=== PATIENT | male | born 1965 | race Caucasian/White ===

== ENCOUNTER 2022-10-18 16:44 | Emergency (ER) | payer MEDICAID ==
[~2022-10-18] VITALS: Ht 182.9 cm; Wt 113.6 kg
[~2022-10-18 16:44] MED LIST: COLC0.6T72 PO; CYCL-1 PO; DICL50TA8 PO
[2022-10-18 17:25] LABS: BASOPHILS # (AUTO) 0.1 X10'3 (0-0.2); BASOPHILS % (AUTO) 0.8 % (0-1); EOSINOPHILS # (AUTO) 0.3 X10'3 (0-0.9); EOSINOPHILS % (AUTO) 4.7 % (0-6); HEMATOCRIT 42.5 % (42.0-52.0); HEMOGLOBIN 14.8 g/dl (14.0-17.9); LYMPHOCYTES # (AUTO) 2.7 X10'3 (1.1-4.8); LYMPHOCYTES % (AUTO) 37.1 % (21-51); MEAN CORPUSCULAR HEMOGLOBIN 32.5 PG (27.0-31.0); MEAN CORPUSCULAR HGB CONC 34.9 g/dL (33.0-36.5); MEAN CORPUSCULAR VOLUME 93.2 FL (78-98); MEAN PLATELET VOLUME 8.9 FL (7.4-10.4); MONOCYTES # (AUTO) 0.6 X10'3 (0-0.9); MONOCYTES % (AUTO) 7.9 % (2-12); NEUTROPHILS # (AUTO) 3.5 X10'3 (1.8-7.7); NEUTROPHILS % (AUTO) 49.5 % (42-75); PLATELET COUNT 235 X10'3 (140-440); RED BLOOD COUNT 4.56 X10'6 (4.70-6.10); RED CELL DISTRIBUTION WIDTH 13.2 % (11.5-14.5); WHITE BLOOD COUNT 7.1 X10'3 (4.5-11.0)
[2022-10-18 17:28] LABS: ALANINE AMINOTRANSFERASE 64 U/L (12-78); ALBUMIN 4.1 G/DL (3.4-5.0); ALBUMIN/GLOBULIN RATIO 1.2 (1.1-1.5); ALKALINE PHOSPHATASE 54 IU/L (46-116); ANION GAP 13 (8-16); ASPARTATE AMINO TRANSFERASE 34 U/L (10-37); BILIRUBIN,TOTAL 0.4 MG/DL (0.1-1.0); BLOOD UREA NITROGEN 15 MG/DL (7-18); BUN/CREATININE RATIO 17.4 (5.4-32.0); CHLORIDE 103 MMOL/L (99-107); CREATININE 0.86 MG/DL (0.60-1.10); GLUCOSE 150 MG/DL (70-104); POTASSIUM 3.8 MMOL/L (3.5-5.1); SODIUM 138 MMOL/L (135-145); TOTAL CARBON DIOXIDE 22.2 MMOL/L (24-32); TOTAL PROTEIN 7.6 G/DL (6.4-8.2); eGFR > 90 ML/MIN
[2022-10-18 17:38] LABS: MAGNESIUM 1.8 MG/DL (1.5-2.4)
[2022-10-18 23:20] VITALS: BP 181/113
--- NOTE | 2022-10-19 00:33 | NUR ---
PT AGGITATED AND NONCOMPLIANT WITH ASSESSMENT AT THIS TIME. WHEN SPOKEN TO THE PT RAISES HIS VOICES AND YELLS ABOUT WAIT TIME. ATTEMPTED TO EXPLAIN TO PT WHY THERE IS A LONG WAIT TIME BUT PT IS UNWILLING TO LISTEN.
== END 2022-10-19 01:16 | disposition home or self-care (01) ==
LOC: ER 16:44
DX: I10 Essential (primary) hypertension (principal); E78.00 Pure hypercholesterolemia, unspecified; G89.29 Other chronic pain; F17.200 Nicotine dependence, unspecified, uncomplicated; Z98.890 Other specified postprocedural states; Z79.899 Other long term (current) drug therapy
CPT/HCPCS: 36415; 71045; 80053; 83735; 83880; 84484; 85025; 93005; 99285

== ENCOUNTER 2023-02-21 13:47 | Emergency (ER) | payer MEDICAID ==
[~2023-02-21] VITALS: Ht 188 cm; Wt 108.6 kg
[2023-02-21 14:18] VITALS: BP 128/93
== END 2023-02-21 15:29 | disposition home or self-care (01) ==
LOC: ER 13:47
DX: S90.112A Contusion of left great toe without damage to nail, initial encounter (principal); M79.675 Pain in left toe(s); I10 Essential (primary) hypertension; E78.00 Pure hypercholesterolemia, unspecified; X58.XXXA Exposure to other specified factors, initial encounter; Y93.89 Activity, other specified; Y92.89 Other specified places as the place of occurrence of the external cause; Y99.8 Other external cause status
CPT/HCPCS: 73630; 99283

== ENCOUNTER 2023-10-16 11:21 | Day surgery (SDC) | payer MEDICAID ==
[2023-10-16] VITALS (10 sets, daily range): BP systolic 100–136; BP diastolic 47–79; PULSE 47–63; RESP 12–16; TEMP 97.6; O2SAT 95–98
[~2023-10-16] VITALS: Ht 182.9 cm; Wt 106.6 kg
[2023-10-16] MEDS ORDERED: normal saline 1,000 ML IV SCH (11:40)
[2023-10-16] MEDS ORDERED: diphenhydrAMINE 25mg capsule PO PRN (11:40)
[2023-10-16] MEDS ORDERED: nitroGLYCERIN 0.4mg SUBLingual tab SL PRN (11:40)
[2023-10-16] MEDS ORDERED: LORazepam 0.5 MG tablet PO PRN (11:40)
[2023-10-16] MEDS ORDERED: ATOR40TA72 PO (12:10)
[2023-10-16] MEDS ORDERED: ASPI-1265 PO (12:10)
[2023-10-16] MEDS ORDERED: LISI40TA13 PO (12:10)
[2023-10-16 12:14] LABS: BASOPHILS # (AUTO) 0.1 X10'3 (0-0.2); BASOPHILS % (AUTO) 1.2 % (0-1); EOSINOPHILS # (AUTO) 0.4 X10'3 (0-0.9); HEMOGLOBIN 14.1 g/dl (14.0-17.9); LYMPHOCYTES # (AUTO) 1.9 X10'3 (1.1-4.8); LYMPHOCYTES % (AUTO) 34.4 % (21-51); MEAN CORPUSCULAR HEMOGLOBIN 32.3 PG (27.0-31.0); MEAN CORPUSCULAR HGB CONC 34.3 g/dL (33.0-36.5); MEAN CORPUSCULAR VOLUME 94.2 FL (78-98); MEAN PLATELET VOLUME 9.5 FL (7.4-10.4); MONOCYTES # (AUTO) 0.5 X10'3 (0-0.9); MONOCYTES % (AUTO) 8.3 % (2-12); NEUTROPHILS # (AUTO) 2.7 X10'3 (1.8-7.7); NEUTROPHILS % (AUTO) 49.1 % (42-75); PLATELET COUNT 238 X10'3 (140-440); RED BLOOD COUNT 4.35 X10'6 (4.70-6.10); RED CELL DISTRIBUTION WIDTH 13.1 % (11.5-14.5); WHITE BLOOD COUNT 5.6 X10'3 (4.5-11.0)
[2023-10-16 12:21] LABS: ALBUMIN 3.8 G/DL (3.4-5.0); ANION GAP 7 (8-16); BLOOD UREA NITROGEN 21 MG/DL (7-18); CHLORIDE 109 MMOL/L (99-107); CREATININE 0.75 MG/DL (0.60-1.10); GLUCOSE 110 MG/DL (70-104); POTASSIUM 4.1 MMOL/L (3.5-5.1); SODIUM 139 MMOL/L (135-145); TOTAL CARBON DIOXIDE 22.7 MMOL/L (24-32); eCRCL 118 ML/MIN; eGFR > 90 ML/MIN
[2023-10-16 12:24] LABS: APTT 22 SECONDS (22-32); INR 0.9 INR; PROTHROMBIN TIME 10.1 SECONDS (9.0-12.0)
[2023-10-16] MEDS ORDERED: fentaNYL/PF 50MCG/1 ML 2ML syringe ONE (13:02)
[2023-10-16] MEDS ORDERED: midazolam 1 mg/ML 2ml injection ONE (13:02)
[2023-10-16] MEDS ORDERED: LIDOcaine 1% 30ml preserv. free vial ONE (13:02)
[2023-10-16] MEDS ORDERED: iohexol 350MG/ML 100ml bottle IV ONE (13:02)
[2023-10-16] MEDS ORDERED: iohexol 350 MG/ML 50ML vial IV ONE (13:03)
[2023-10-16] MEDS ORDERED: proCHLORperazine 10 MG/2 ml inj IV PRN (14:45)
[2023-10-16] MEDS ORDERED: HYDROcodone/acetaminophen 5mg/325mg tablet PO PRN (14:45)
[2023-10-16] MEDS ORDERED: HYDROcodone/acetaminophen 10/325mg tab PO PRN (14:45)
[2023-10-16] MEDS ORDERED: ondansetron/PF 4mg/2ml inj IV PRN (14:45)
[2023-10-16] MEDS ORDERED: OXAZEpam 15mg capsule PO PRN (14:45)
[2023-10-16] MEDS ORDERED: normal saline 1000ml 1,000 ML IV SCH (14:45)
[2023-10-16] MEDS ORDERED: dextrose 50%-water 50ml dispensing syringe IV PRN ×2 (16:45)
[2023-10-16] MEDS ORDERED: DEXTROSE 15 GM of carb/4 tabs (each vial/BOTTLE has 4 tablets) PO PRN ×2 (16:45)
[2023-10-16] MEDS ORDERED: insulin Lispro (HumaLOG) vial - multi-dose SQ SCH (16:45)
[2023-10-16] MEDS ORDERED: glucagon, human recombinant 1mg kit SUBCUT PRN (16:45)
[2023-10-16] MEDS ORDERED: MESSAGE TO PHARMACY PO ONE (16:45)
[2023-10-16 17:47] LABS: HEMOGLOBIN A1C 5.6 % (4.5-6.2)
[2023-10-16] MEDS ORDERED: insulin glargine (Lantus) pen - multi-dose SQ SCH (21:00)
== END 2023-10-16 19:45 | disposition home or self-care (01) ==
LOC: SSTAY O 11:21
PROVIDERS: ATTEND Internal Medicine Cardiovascular Disease
DX: R94.39 Abnormal result of other cardiovascular function study (principal); I25.10 Atherosclerotic heart disease of native coronary artery without angina pectoris; I10 Essential (primary) hypertension; F32.A Depression, unspecified; E78.5 Hyperlipidemia, unspecified; E11.42 Type 2 diabetes mellitus with diabetic polyneuropathy; M19.012 Primary osteoarthritis, left shoulder; M54.30 Sciatica, unspecified side; M47.812 Spondylosis without myelopathy or radiculopathy, cervical region; Z79.899 Other long term (current) drug therapy; Z79.84 Long term (current) use of oral hypoglycemic drugs; Z87.891 Personal history of nicotine dependence; Z79.01 Long term (current) use of anticoagulants
CPT/HCPCS: 36415; 80048; 82948; 83036; 85025; 85610; 85730; 93005; 93458; 99152; J1644; J1815; J2250; J3010; J3490; J7030; Q0163; Q9967; 96360; 99153; A6258; C1760

== ENCOUNTER 2024-07-12 13:50 | Emergency (ER) | payer MEDICAID ==
[~2024-07-12] VITALS: Ht 182.9 cm; Wt 90.0 kg
[~2024-07-12 13:50] MED LIST changes: +ASPI-1265 PO; +ATOR40TA72 PO; -COLC0.6T72 PO; -CYCL-1 PO; -DICL50TA8 PO; +LISI40TA13 PO
[2024-07-12 15:28] VITALS: BP 134/94; PULSE 78; RESP 16; TEMP 98; O2SAT 97
== END 2024-07-12 15:31 | disposition home or self-care (01) ==
LOC: ER 13:51
DX: S93.402A Sprain of unspecified ligament of left ankle, initial encounter (principal); E78.00 Pure hypercholesterolemia, unspecified; I10 Essential (primary) hypertension; G89.29 Other chronic pain; M54.9 Dorsalgia, unspecified; Z79.82 Long term (current) use of aspirin; Z79.899 Other long term (current) drug therapy; X58.XXXA Exposure to other specified factors, initial encounter; Y93.89 Activity, other specified; Y92.89 Other specified places as the place of occurrence of the external cause; Y99.8 Other external cause status
CPT/HCPCS: 73610; 73630; 99284

== ENCOUNTER 2025-03-13 15:36 | Emergency (ER) | payer MEDICAID ==
[~2025-03-13] VITALS: Ht 182.9 cm; Wt 111.4 kg
[~2025-03-13 15:36] MED LIST changes: +FENO48TA10 PO; +IBUP-1985 PO; +MULT-1249 PO; +POTA99CA PO
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
[2025-03-13] MEDS: HYDROcodone/acetaminophen 10/325mg tab PO STA (17:28)
--- NOTE | 2025-03-13 17:43 | RADIOLOGY REPORT ---
DI TIB/FIB 2 VWS, INDICATION: LEG PAIN TECHNICAL DATA: Frontal and lateral views were obtained of the left leg. COMPARISON: None FINDINGS: Distal fibula and tibia fracture at the medial malleolus with soft tissue edema. IMPRESSION: Distal fibula and tibia fracture at the medial malleolus with soft tissue edema.
--- NOTE | 2025-03-13 17:44 | RADIOLOGY REPORT ---
DI ANKLE, COMPLETE(3VW MIN), INDICATION: ANKLE PAIN TECHNICAL DATA:Frontal , oblique and lateral views were obtained of the left ankle. COMPARISON: DI ANKLE, COMPLETE(3VW MIN) on DOS: 07/12/24 FINDINGS: Distal fibula and tibia fracture at the medial malleolus with soft tissue edema. Joint spaces are nelly ntained. Alignment is anatomic. IMPRESSION: Distal fibula and tibia fracture at the medial malleolus with soft tissue edema.
--- NOTE | 2025-03-13 17:45 | RADIOLOGY REPORT ---
DI FOOT, COMPLETE (3VW MIN), INDICATION: FOOT PAIN TECHNICAL DATA: Frontal, oblique and lateral views were obtained of the right foot. COMPARISON: DI FOOT, COMPLETE (3VW MIN) on DOS: 07/12/24, FOOT, COMPLETE (3VW MIN) on DOS: 02/21/23 FINDINGS: Distal fibula and tibia fracture at the medial malleolus with soft tissue edema. Joint spaces are nelly ntained. Alignment is anatomic. The hallux sesamoids appear normal. Soft tissues are within normal li mits. IMPRESSION: Distal fibula and tibia fracture at the medial malleolus with soft tissue edema.
[2025-03-13] MEDS ORDERED: OXYC10TA47 PO (18:22)
[2025-03-13 18:39] VITALS: BP 138/80; PULSE 80; RESP 16; TEMP 97.8; O2SAT 99
== END 2025-03-13 18:43 | disposition home or self-care (01) ==
LOC: ER 15:37
DX: S82.52XA Displaced fracture of medial malleolus of left tibia, initial encounter for closed fracture (principal); S82.402A Unspecified fracture of shaft of left fibula, initial encounter for closed fracture; Z79.899 Other long term (current) drug therapy; Z79.82 Long term (current) use of aspirin; X58.XXXA Exposure to other specified factors, initial encounter; Y93.89 Activity, other specified; Y92.89 Other specified places as the place of occurrence of the external cause; Y99.8 Other external cause status
CPT/HCPCS: 29515; 73590; 73610; 73630; 99284; A6446; A6449

== ENCOUNTER 2025-04-23 14:51 | Emergency (ER) | payer MEDICAID ==
[~2025-04-23] VITALS: Ht 182.9 cm; Wt 91.0 kg
[~2025-04-23 14:51] MED LIST changes: -LISI40TA13 PO; +LISI40TA20 PO
[2025-04-23 14:54] VITALS: BP 173/90; PULSE 81; RESP 16; TEMP 97; O2SAT 97
--- NOTE | 2025-04-23 15:43 | Physician Documentation ---
History of Present Illness ~ Chief Complaint: See Chief Complaint Stated Complaint: POSS BLOOD CLOT Time Seen by MD: 15:32 Primary Medical Doctor: [facility] Source: patient Mode of Arrival: POV Exam Limitations: no limitations HPI Chief Complaint: Left Forearm swelling Caveat: None Independent Historians: None History of Present Illness: Patient is a 59-year-old man who was referred here by the orthopedic office because of swelling in the left forearm. Patient woke up this morning and noticed some very localized swelling over the mid lateral left forearm. There was no pain. Patient thought it felt warm to touch. The patient was worried about it being a possible blood clot because six weeks ago he had fractured his left ankle/leg and had surgery in his currently in a cast. The orthopedic office that he called recommended he go to the ER to be evaluated. Patient denies any chest pain or shortness for breath. Patient denies any fever. No other associated symptoms. Review of systems: All systems were reviewed and are negative except for what is indicated in the history of present illness. Past Medical History: HTN, HLD Past Surgical History: Orthopedic surgery Social History: No tobacco use, no alcohol use, no drug use Medications: Reviewed as documented Nursing Notes Allergies: Reviewed as documented in Nursing Notes Tetanus within 5 years: Yes (2020) Medication Reconciliation Allergies: Coded Allergies: No Known Allergies (Unverified , 04/23/25) Scheduled Aspirin (Aspirin), 81 MG PO QAM, (Reported) Atorvastatin Calcium (Atorvastatin Calcium), 40 MG PO QAM, (Reported) Fenofibrate Nanocrystallized (Fenofibrate), 48 MG PO QAM, (Reported) Lisinopril* (Lisinopril*), 40 MG PO QAM, (Reported) Multivitamin (Multivitamin), 1 TAB PO DAILY, (Reported) Potassium Citrate (Potassium), 99 MG PO QAM, (Reported) Scheduled PRN Ibuprofen (Ibuprofen), 600 MG PO TID PRN for pain, (Reported) Past Medical History Past Medical History: No Pertinent History, High Cholesterol, Hypertension, Chronic Back Pain Past Surgical History: orthopedic surgeries Alcohol Use: None Drug Use: none Lives In: Home Review of Systems All Other Systems at this time: Reviewed and Negative ROS Patient denies any other acute symptoms other than above. All other systems are negative Physical Exam Vital Signs: RN Vital Signs have been reviewed: Yes, Temperature: 97.0, Source: Temporal, Heart Rate: 81, Respiratory Rate: 16, BP: 173/90, Pulse Oximetry: 97, Weight: 91.000 Oxygen Flow Rate: 0 Pulse Oximetry Reflects: adequate oxygenation Physical Exam General Appearance: No distress Neck: supple, normal ROM, trachea midline Pulmonary: No respiratory distress, CTA, BS equal Cardiac: RRR, no murmur, rub or gallop, Extremities: Left leg is in a short-leg cast, no swelling of the left lower extremity, calf is nontender proximally. Left forearm there is a subtle but visibly enlarged or swollen area compared to the right forearm. There is no erythema. No induration. Nontender. This area swelling is subtle small and not well demarcated. Skin: intact, dry, warm, no rashes Neuro: AAOx3, speech is clear, no focal motor weakness Psych: normal affect, good eye contact, no apparent hallucination, normal speech Progress Results/Orders Results/Orders Vital Signs 04/23/25 14:54 Temp 97.0 Pulse 81 Resp 16 B/P (MAP) 173/90 Pulse Ox 97 O2 Flow Rate 0 Medical Decision Making Findings Differential diagnosis includes but is not limited to: DVT, cellulitis, early infection, abscess, trauma, hematoma Emergency department course/medical decision-making: None of the above diagnoses in the differential fit his history and physical exam. Patient is reassured. Medical screening exam is negative for DVT and negative for any medical or surgical emergency. Patient is reassured and stable for discharge. Cause for this localized area swelling is unknown. Patient instructed to return if symptoms change or worsen. Departure Time of Disposition: 15:39 Disposition: 01 HOME / SELF CARE / HOMELESS Impression: Primary Impression: Encounter for medical screening examination Condition: Stable Discharge Instructions: Medical Screening Exam Additional Instructions: YOU DO NOT HAVE A BLOOD CLOT IN THE ARM OR LEG. THE LOCALIZED SWELLING IN THE LEFT ARM IS OF UNKNOWN CAUSE. MONITOR IT. RETURN TO THE ER IF SYMPTOMS CHANGE OR WORSEN. Education Educated: Patient Educated regarding: diagnosis, treatment, need for follow up Signature Scribe Signature: No scribe Attestation: No scribe YVROSE LUNA MD Apr 23, 2025 15:43
== END 2025-04-23 15:48 | disposition home or self-care (01) ==
LOC: ER 14:51
DX: Z13.9 Encounter for screening, unspecified (principal); M79.89 Other specified soft tissue disorders; E78.5 Hyperlipidemia, unspecified; I10 Essential (primary) hypertension; Z79.82 Long term (current) use of aspirin; Z79.899 Other long term (current) drug therapy
CPT/HCPCS: 99282